=== PATIENT | male | born 1955 | race Asian ===

== ENCOUNTER → 2017-07-07 | Outpatient (CLI) | payer OTHER ==
[~2017-07-07] VITALS: Ht 185.4 cm; Wt 129.3 kg
[~2017-07-07] MED LIST: AMLODIPINE BESY10 MG PO; ASPIR 8181 MG PO; HYDROCHLOROTHIA25 M2 PO; HYDROCODONE-AP1 EAC6 PO; IBUPROFEN 800800 M1 PO; NEURONTIN 300300 M1 PO; PROAIR RESPICL90 MCG INH; ULTRACET TABLET1 TAB PO
--- NOTE | ~2017-07-07 | HPC ---
[facility] [place] [address] PAIN MANAGEMENT CONSULTATION Name: LOVINGDAVID Aviva Room #: REG Louisa Henao#: [id number] Admission: 07/07/17 Attend Phys: Kar Salguero DO Discharge: Date of : 57 Report #: [id number] THIS REPORT FOR: //name// CC: Bharti Salguero DATE OF SERVICE: 07/07/2017 HISTORY OF PRESENT ILLNESS: The patient is a very pleasant 61-year-old gentleman, seen in consultation at the request of Dr. Daniel for assistance with pain, low back, left and right. The patient notes he had had a prior back surgery on 03/17/2017 (L5-S1 diskectomy and L3-L5 laminectomy). The patient notes primary left radicular pain did improve following his injection, but axial back pain has remained problematic. Notes pain is exacerbated with standing, driving. Rates the pain an 8-10 on a VAS, describes rhythmic, burning, shooting, sharp, tender pain. He uses a cane in his right hand. Some subjective weakness in the left leg, but this seems to be resolving. He denies saddle anesthesia or bowel or bladder continence changes. Uses gabapentin 300 mg t.i.d. Has tramadol and hydrocodone, which he takes on a p.r.n. basis. REVIEW OF SYSTEMS: Complete review of systems is attached to chart and gone over with the patient. He is . He does not smoke or drink alcohol to excess. History of a little reactive airway disease for which he uses Ventolin. Hypertension treated with hydrochlorothiazide and amlodipine. History of colon cancer treated with removal of a polyp with carcinoma in situ. Required no further adjuvant therapy, no radiation or chemotherapy. The patient is retired from construction manual labor. Pain impact score is quite high, averaging 52/70. PHYSICAL EXAMINATION: GENERAL: Reveals a fairly robust 6 feet 1 inch, 285 pound gentleman, BMI is 37.6 kilograms per meter squared. VITAL SIGNS: Blood pressure 132/72, pulse 72, respirations 16. NEUROLOGIC: Cranial nerves 2-12 are grossly intact. HEENT: Pupils equal and reactive to light and accommodation. Extraocular muscles are intact. Thyroid is modestly enlarged. NECK: Cervical range of motion is full. Upper extremity strength is preserved. HEART: Regular rhythmical. LUNGS: Clear. ABDOMEN: Shows a modestly endomorphic build. MUSCULOSKELETAL: The patient rises from chair using armrests, has exacerbation of pain with standing, modestly antalgic gait. Lumbar flexion is good to 90 degrees, but he has diffuse tenderness across the low back in the SI area. Left leg shows diminished strength to hip flexion, lower extremity extension perhaps [facility] [address] [place] [address] PAIN MANAGEMENT CONSULTATION Name: LOVINGDAVID [id number] Admission: 07/07/17 Attend Phys: Kar Salguero DO Discharge: Date of : 57 Report #: [id number] 3/5, right leg is a little stronger at 4/5. Patellar and Achilles reflexes are preserved. Grossly positive LA[place]ISAH test bilaterally, left more so than right. Diffuse tenderness across the low back, again exacerbated with flexion and rotating. Straight leg raise is nominally positive bilaterally. DIAGNOSTIC STUDIES: There are no recent diagnostic studies available for evaluation at this time. ASSESSMENT: 1. Symptomatic lumbar radiculopathy status post decompressive laminectomy. 2. Axial back pain. 3. Sacroiliac mediated pain. RECOMMENDATIONS: Long discussion with the patient today about therapeutic option. Recommend he continue ibuprofen 800 mg at least b.i.d. He has a prescription for 800 mg ibuprofen t.i.d., though he stopped taking it for concern over kidney function concerns. He does not have any issues predisposing to renal dysfunction, he is not diabetic. He has not dehydrated, and he does not have a history of renal disease. Next, we talked about Lumbar epidural injection under fluoroscopy versus facet joint injections versus SI joint injections. After discussion, we have elected to proceed with bilateral SI joint injection under fluoroscopy today for primarily SI mediated pain. Follow up in 3 weeks to reevaluate. May consider L5-S1 facet joint injections versus epidural injection depending on clinical presentation at that time. Thank you for allowing me to participate in the patient's care. I will keep you abreast of his progress. PROCEDURE: Bilateral SI joint injection under fluoroscopy. PROCEDURE NOTE: After written and informed consent was obtained including risk of infection, nerve trauma, increased pain and weakness, the patient wishes to proceed. The patient was taken to the fluoroscopy suite, placed in the prone position. The sacroiliac joint was visualized using the C-arm, turned in an oblique fashion to align the joint. The skin overlying the area was cleansed with ChloraPrep. Skin wheal with Xylocaine was raised. A 22 gauge spinal needle was inserted into the inferior aspect of the joint. A low volume extension tubing was then attached to the needle after the stylet was removed. Negative aspiration was accomplished. A 1 mL of Omnipaque was injected which showed spread within the SI joint. 40 mg triamcinolone plus 2 mL of 0.5% preservative-free bupivacaine was injected into the joint. Needle was removed. Attention was then turned to the contralateral joint which was treated in an identical fashion. After both needles were removed the prep was washed off. Two Band-Aids were applied over the puncture sites. The patient was allowed to ambulate to the recovery room, monitored for an appropriate period of time, discharged in good and stable condition. [address] [address] PAIN MANAGEMENT CONSULTATION Name: LOVINGDAVID W Room #: REG [facility]#: [id number] Admission: 07/07/17 Attend Phys: Kar Salguero DO Discharge: Date of : 57 Report #: [id number] The patient was discharged in good and stable condition, noting subjective improvement in baseline pain, pain had been about an 8 on a VAS was down to 5 on discharge. We will have him continue to monitor efficacy of interventional therapy today. <ELECTRONICALLY SIGNED> By: Kar Salguero DO 07/08/17 0731 [id number] [id number] Kar Salguero DO /nt
[2017-07-07 09:00] VITALS: BP 132/72
== END | disposition home or self-care (01) ==
LOC: PAIN 06:22
DX: M53.3 Sacrococcygeal disorders, not elsewhere classified (principal); M54.16 Radiculopathy, lumbar region; Z68.37 Body mass index [BMI] 37.0-37.9, adult; I10 Essential (primary) hypertension; Z79.899 Other long term (current) drug therapy; Z85.038 Personal history of other malignant neoplasm of large intestine